=== PATIENT | female | born 1965 | race Caucasian/White ===

== ENCOUNTER → 2020-12-10 | Day surgery (SDC) | payer OTHER ==
[~2020-12-10] MED LIST: FLUOXETINE HCL20 M1 PO; HCTZ12.5 MG PO; METHOTREXA25 MG/1 ML IJ; PRINIVIL20 MG PO; SYNTHROID100 MCG PO; XYZAL5 MG PO; ZYRTEC10 M3 PO
[2020-12-10 08:28] LABS: HCT 44.3 % (37.0-47.0); HGB 15.4 g/dl (12.5-16.0); MCH 33.3 pg (25.0-31.0); MCHC 34.8 g/dL (32.0-36.0); MCV 95.7 fL (78.0-100.0); MPV 9.6 fL (6.0-9.5); RBC 4.63 M/uL (4.20-5.40); RDW 12.9 % (11.5-14.0); WBC 8.2 K/uL (4.0-10.5)
[2020-12-10 08:52] LABS: ALBUMIN 3.9 g/dL (3.4-5.0); BILIRUBIN - TOTAL 0.5 mg/dL (0.2-1.0); BUN/CREAT RATIO (CALC) 11.7 RATIO; CREATININE 0.6 mg/dL (0.51-0.95); GLOBULIN (CALCULATION) 4.2 g/dL; POTASSIUM 3.7 mmol/L (3.5-5.1); TOTAL PROTEIN 8.1 g/dL (6.4-8.2)
== END | disposition home or self-care (01) ==
LOC: FAS 07:44
PROVIDERS: Surgery
DX: Z12.11 Encounter for screening for malignant neoplasm of colon (principal); K57.30 Diverticulosis of large intestine without perforation or abscess without bleeding; K21.9 Gastro-esophageal reflux disease without esophagitis; I10 Essential (primary) hypertension; J30.9 Allergic rhinitis, unspecified; M19.90 Unspecified osteoarthritis, unspecified site; E78.00 Pure hypercholesterolemia, unspecified; E03.9 Hypothyroidism, unspecified; F17.210 Nicotine dependence, cigarettes, uncomplicated; Z90.710 Acquired absence of both cervix and uterus; Z98.890 Other specified postprocedural states; Z20.822 Contact with and (suspected) exposure to COVID-19; Z88.8 Allergy status to other drugs, medicaments and biological substances
CPT/HCPCS: 36415; 80053; J1610; J2704; J7120